=== PATIENT | male | born 1945 | race Caucasian/White ===

== ENCOUNTER 2016-06-30 06:09 | Day surgery (SDC) | payer MEDICARE, BC ==
[~2016-06-30] VITALS: Ht 190.5 cm; Wt 94.6 kg
[2016-06-30] VITALS (22 sets, daily range): BP systolic 93–136; BP diastolic 48–93; PULSE 48–62; RESP 12–18; TEMP 98.2–98.9; O2SAT 97–100; Ht 190.5 cm; Wt 94.6 kg
[~2016-06-30 06:09] MED LIST: AMIT25TA9 PO; AMLO5TAB2 PO; CYCL30DR BOTH EYES; FINA1TAB PO; HYDR-3989 PO; HYDR12.54 PO; LOSA100T44 PO; METO75TA PO; OMEP20CA10 PO; OXCA300T18 PO; PRIM50TA23 PO; SPIR25TA4 PO
--- OUTSIDE RECORDS SUMMARY | 2016-06-30 06:14 | XMS REPORT | Continuity of Care Document ---
Author Author [facility] Organization [facility] Address Unknown Phone Unavailable Allergies Active Description Code Type Severity Reaction Onset Reported/Identified Relationship to Patient Clinical Status Yes NKDA N/A N/A Yes No Known Allergies NKMA N/A N/A 07/31/2013 Yes No Known Allergies NKMA N/A N/A 07/31/2013 Yes No Known Medication Allergies NKMA N/A N/A 05/13/2016 Medications Medication Packaging Start Date Stop Date Route Dosage Sig finasteride(Propecia 1 mg oral tablet) 1 tabs 07/31/2013 Oral 1 mg 1 tabs, Oral, Daily losartan(Cozaar 100 mg oral tablet) 1 tabs 07/31/20132013 Oral 100 mg 1 tabs, Oral, Daily metoprolol(Lopressor 50 mg oral tablet) 0.5 tabs 07/31/2013 Oral 25 mg 0.5 tabs, Oral, BID amLODIPine(Norvasc 10 mg oral tablet) 1 tabs 07/31/20132013 Oral 10 mg 1 tabs, Oral, Daily multivitamin(multivitamin) 07/31/2013 09/03/2013 Oral Oral, Daily primidone(primidone) 07/31/2013 Oral 50 mg 50 mg, Oral, BID hydrochlorothiazide(hydrochlorothiazide 12.5 mg oral tablet ) 1 tabs 07/31/2013 03/15/2014 Oral 12.5 mg 1 tabs, Oral, Daily aspirin(aspirin) 07/31/2013 07/29/2014 Oral 81 mg 81 mg, Oral , Daily HYDROcodone-acetaminophen([place] 5 mg-325 mg oral tablet) 1 tabs 08/08/2013 01/15/2014 Oral 1 tabs, Oral, q6hr, #60 MUST LAST 30 DAYS - N DILLONS, 60 tabs DULoxetine(Cymbalta 60 mg oral delayed release capsule) 1 caps 08/14/2013 10/16/2013 Oral 60 mg 1 caps, Oral, Daily, do not crush or chew, 30 caps losartan(Cozaar 100 mg oral tablet) 08/20/2013 11/23/2013 See Instructions, TAKE ONE TABLET BY MOUTH EVERY DAY, 30 tabs amoxicillin(amoxicillin 875 mg oral tablet) 1 tabs 09/03/2013 09/03/2013 Oral 875 mg 1 tabs, Oral, BID, 20 tabs amoxicillin(amoxicillin 875 mg oral tablet) 1 tabs 09/03/2013 09/19/2013 Oral 875 mg 1 tabs, Oral, BID, 20 tabs metoprolol(Lopressor 50 mg oral tablet) 10/01/20132013 See Instructions, TAKE ONE-HALF TABLET BY MOUTH TWICE A DAY, 60 tabs amLODIPine(Norvasc 10 mg oral tablet) 10/01/2013 11/28/2013 See Instructions, TAKE ONE TABLET BY MOUTH EVERY DAY, 30 tabs DULoxetine(Cymbalta 60 mg oral delayed release capsule) 10/16/2013 01/09/2014 See Instructions, TAKE ONE CAPSULE BY MOUTH ONCE A DAY, 30 caps losartan(Cozaar 100 mg oral tablet) 11/23/2013 01/21/2014 See Instructions, TAKE ONE TABLET BY MOUTH EVERY DAY, 30 tabs amLODIPine(Norvasc 10 mg oral tablet) 11/28/2013 01/15/2014 See Instructions, TAKE ONE TABLET BY MOUTH EVERY DAY, 30 tabs metoprolol(Lopressor 50 mg oral tablet) 12/10/20132013 See Instructions, TAKE ONE-HALF TABLET BY MOUTH TWICE A DAY, 60 tabs amLODIPine(amLODIPine 10 mg oral tablet) 12/31/20132014 See Instructions, TAKE ONE TABLET BY MOUTH EVERY DAY, 30 tabs DULoxetine(Cymbalta 60 mg oral delayed release capsule) 01/09/2014 03/12/2014 See Instructions, TAKE ONE CAPSULE BY MOUTH ONCE A DAY, 30 caps HYDROcodone-acetaminophen([place] 5 mg-325 mg oral tablet) 1 tabs 01/15/2014 06/25/2014 Oral 1 tabs, Oral, q6hr, #60 MUST LAST 30 DAYS - N [place], 60 tabs, 0 Refill(s) cyclobenzaprine(cyclobenzaprine 10 mg oral tablet) 1 tabs 01/15/2014 01/25/2014 Oral 10 mg 1 tabs, Oral, TID, 30 tabs, PRN: as needed for spasm losartan(Cozaar 100 mg oral tablet) 01/21/2014 02/20/2014 See Instructions, TAKE ONE TABLET BY MOUTH DAILY, 30 tabs metoprolol(Lopressor 50 mg oral tablet) 02/06/20142014 See Instructions, TAKE ONE-HALF TABLET BY MOUTH TWICE A DAY, 60 tabs losartan(Cozaar 100 mg oral tablet) 02/20/2014 05/21/2014 See Instructions, TAKE ONE TABLET BY MOUTH DAILY, 30 tabs DULoxetine(DULoxetine 60 mg oral delayed release capsule) 03/12/2014 06/25/2014 See Instructions, TAKE ONE CAPSULE BY MOUTH ONCE A DAY, 90 caps amLODIPine(amLODIPine 10 mg oral tablet) 04/29/20142014 See Instructions, TAKE ONE TABLET BY MOUTH DAILY, 30 tabs losartan(Cozaar 100 mg oral tablet) 05/21/2014 07/22/2014 See Instructions, TAKE ONE TABLET BY MOUTH DAILY, 30 tabs amitriptyline(amitriptyline 25 mg oral tablet) 1 tabs 06/25/2014 Oral 25 mg 1 tabs, Oral, Bedtime (once a day), 0 Refill(s) HYDROcodone-acetaminophen([place] 5 mg-325 mg oral tablet) 1 tabs 06/25/2014 12/19/2014 Oral 1 tabs, Oral, q6hr, #60 MUST LAST 30 DAYS - N [place], 60 tabs, 0 Refill(s) nystatin topical(nystatin 100,000 units/g topical cream) 1 luis 06/25/2014 09/16/2014 Topical 1 luis, Topical, BID, 30 g, 0 Refill(s) fluconazole(Diflucan 150 mg oral tablet) 1 tabs 06/25/201401/2015 Oral 150 mg 1 tabs, Oral, Once, 1 tabs, 0 Refill(s) metoprolol(Lopressor 50 mg oral tablet) 07/05/20142014 See Instructions, TAKE ONE-HALF TABLET BY MOUTH TWICE A DAY, 60 tabs, 2 Refill(s) losartan(Cozaar 100 mg oral tablet) 07/22/2014 01/17/2015 See Instructions, TAKE ONE TABLET BY MOUTH DAILY, 30 tabs, 5 Refill(s) cycloSPORINE ophthalmic(Restasis) 1 drops 07/29/2014 Eye-Both 1 drops, Eye-Both, q12hr, 0 Refill(s) amLODIPine(amLODIPine 10 mg oral tablet) 07/29/20142014 See Instructions, TAKE ONE TABLET BY MOUTH DAILY, 30 tabs, 1 Refill(s) clotrimazole-betamethasone topical(Lotrisone 1%-0.05% topical cream) 1 luis 09/16/2014 Topical 1 luis, Topical, BID, 15 g, 0 Refill(s) fluconazole(Diflucan 150 mg oral tablet) 1 tabs 07/29/201404/2014 Oral 150 mg 150 mg=1 tabs, Oral, Daily, for 7 days, 7 tabs, 0 Refill(s) amLODIPine(amLODIPine 10 mg oral tablet) 09/26/20142014 See Instructions, TAKE ONE TABLET BY MOUTH DAILY, 30 tabs, 2 Refill(s) influenza virus vaccine, inactivated(influenza virus vaccine) 0.5 mL 201411/26/2014 IntraMuscular 0.5 mL, IntraMuscular, Once pneumococcal 13-valent conjugate vaccine(pneumococcal 13- valent conjugate vaccine) 0.5 mL 11/26/2014 11/26/2014 IntraMuscular 0.5 mL , IntraMuscular, Once terbinafine(terbinafine 125 mg oral granule) Each 12/19/2014 03/30/2016 Oral mg mg=Each, Oral, Daily, 0 Refill(s) baclofen(baclofen 10 mg oral tablet) 1 tabs 12/19/20142016 Oral 10 mg 10 mg=1 tabs, Oral, TID, PRN: as needed for muscle spasm, 270 tabs , 0 Refill(s) HYDROcodone-acetaminophen([place] 5 mg-325 mg oral tablet) 1 tabs 12/19/2014 05/14/2016 Oral 1 tabs, Oral, q6hr, 60 tabs, 0 Refill(s) hydrochlorothiazide(hydroCHLOROthiazide 12.5 mg oral capsule) 1 caps 2016 Oral 12.5 mg 12.5 mg=1 caps, Oral, Daily, 0 Refill(s) omeprazole(omeprazole 20 mg oral delayed release capsule) 4 caps 03/30/2016 03/30/2016 Oral 80 mg 80 mg=4 caps, Oral, Daily, 0 Refill(s) spironolactone(spironolactone 25 mg oral tablet) 2 tabs 03/30/2016 Oral 50 mg 50 mg=2 tabs, Oral, Daily, 0 Refill(s) Sodium Chloride 0.9%(Sodium Chloride 0.9% 1,000 mL) 1,000 mL 03/30/2016 03/30/2016 IV 10 mL/hr, IV metroNIDAZOLE(metroNIDAZOLE) 100 mL 05/13/2016 05/13/2016 IV Piggyback 500 mg 500 nv=204 mL, 100 mL/hr, IV Piggyback, PREOP ceFAZolin(ceFAZolin) 20 mL 05/13/2016 05/13/2016 IV Push 2 g 2 g= 20 mL, IV Push, PREOP metoclopramide(Reglan) 2 mL 05/13/2016 05/15/2016 IV Push 10 mg 10 mg=2 mL, IV Push, q6hr nalOXone(Narcan) 1 mL 05/13/2016 05/15/2016 IV Push 0.4 mg 0.4 mg= 1 mL, IV Push, Daily, PRN: Opiate Reversal morphine(morphine EPIC ANESTHESIA ANALYST 150 mg) 150 mL 05/13/2016 05/13/2016 IV 150 mg EPIC ANESTHESIA ANALYST, IV, Stop: 07/12/16 13:06:00 CDT ondansetron(Zofran) 2 mL 05/13/2016 05/15/2016 IV Push 4 mg 4 mg= 2 mL, IV Push, q6hr, PRN: Nausea or Vomiting Sodium Chloride 0.45%(Sodium Chloride 0.45% 1,000 mL) 1,000 mL 05/13/2016 05/14/2016 IV 80 mL/hr, IV cycloSPORINE ophthalmic(Restasis) 1 drops 05/13/20162016 Eye-Both 1 drops, Eye-Both, BID HYDROmorphone(Dilaudid) 0.5 mL 05/13/2016 05/13/2016 IV Push 0.5 mg 0.5 mg=0.5 mL, IV Push, q5min, PRN: Pain ocular lubricant(ocular lubricant ophthalmic solution) 2 drops 05/13/2016 05/15/2016 Eye-Both 2 drops, Eye-Both, q4hr ocular lubricant(Lacri-Lube S.O.P. ophthalmic ointment) 1 luis 05/13/2016 05/15/2016 Eye-Both 3.5 g 3.5 g=1 luis, Eye-Both, [id number] erythromycin ophthalmic(erythromycin 0.5% ophthalmic ointment) 1 luis 201605/15/2016 Eye-Right 1 luis, Eye-Right, QID HYDROcodone-acetaminophen(HYDROcodone-acetaminophen 5 mg- 216 mg/10 mL oral liquid range dose) 20 mL 05/14/2016 05/15/2016 Oral 20 mL, Oral, q6hr, PRN: Pain Moderate (4-6) tamsulosin(Flomax) 1 caps 05/14/2016 05/14/2016 Oral 0.4 mg 0.4 mg=1 caps, Oral, Once Problems Date Dx Coded Attending Type Code Diagnosis Diagnosed By 03/19/2014 Refugio Wilson MD Final 458.9 HYPOTENSION, UNSPECIFIED 03/19/2014 Refugio Wilson MD Reason 780.2 SYNCOPE AND COLLAPSE 04/02/2016 Misasi,, Davon Final E26.9 Hyperaldosteronism, unspecified 04/02/2016 Misasi,, Davon Final G25.0 Essential tremor 04/02/2016 Misasi,, Davon Final I10 Essential (primary) hypertension 04/02/2016 Misasi,, Davon Final K21.9 Gastro-esophageal reflux disease without esophagitis 04/02/2016 Misasi,, Davon Reason K22.70 Andrea''s esophagus without dysplasia 04/02/2016 Misasi,, Davon Final K44.9 Diaphragmatic hernia without obstruction or gangrene 04/02/2016 Misasi,, Davon Final L82.0 Inflamed seborrheic keratosis 04/02/2016 Misasi,, Davon Final M47.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, cervical region 04/02/2016 Misasi,, Davon Final M48.06 Spinal stenosis, lumbar region 04/02/2016 Misasi,, Davon Final M51.26 Other intervertebral disc displacement, lumbar region 04/02/2016 Misasi,, Davon Final M51.36 Other intervertebral disc degeneration, lumbar region 04/02/2016 Misasi,, Davon Final N28.9 Disorder of kidney and ureter, unspecified 04/02/2016 Misasi,, Davon Final Z87.19 Personal history of other diseases of the digestive system 04/02/2016 Misasi,, Davon Final Z87.442 Personal history of urinary calculi 04/02/2016 Misasi,, Davon Final Z87.891 Personal history of nicotine dependence 04/02/2016 Misasi,, Davon Final Z98.890 Other specified postprocedural states 05/19/2016 Misasi,, Davon Final H57.11 Ocular pain, right eye 05/19/2016 Misasi,, Davon Final I10 Essential (primary) hypertension 05/19/2016 Misasi,, Davon Final J30.9 Allergic rhinitis, unspecified 05/19/2016 Misasi,, Davon Final K21.0 Gastro-esophageal reflux disease with esophagitis 05/19/2016 Misasi,Davon Admitting K22.70 Andrea''s esophagus without dysplasia 05/19/2016 Misasi,, Davon Final K44.9 Diaphragmatic hernia without obstruction or gangrene 05/19/2016 Misasi,, Davon Final M47.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, cervical region 05/19/2016 Misasi,, Davon Final M51.36 Other intervertebral disc degeneration, lumbar region 05/19/2016 Misasi,, Davon Final M54.5 Low back pain 05/19/2016 Misasi,, Davon Final R13.10 Dysphagia, unspecified 05/19/2016 Misasi,, Davon Final R33.9 Retention of urine, unspecified 05/19/2016 Misasi,, Davon Final Z85.828 Personal history of other malignant neoplasm of skin 05/19/2016 Misasi,, Davon Final Z87.891 Personal history of nicotine dependence 05/19/2016 Misasi,, Davon Final K22.70 Andrea''s esophagus without dysplasia Procedures Code Description [place] [address] Esophagogastroduodenoscopy, flexible, transoral; diagnostic, including viridiana 03/30/2016 [id number] Robotic Assisted Procedure of Trunk Region, Percutaneous Endoscopic Approac 05/13/2016 Results Test Result Range CBC With Platelet No Differential - 05/13/16 06:24 HCT 42.7 % 42.0-52.0 HGB 15.4 g/dL 14.0-18.0 MCH 31.3 pg 27.0-32.0 MCHC 36.1 g/dL 32.0-36.0 MCV 86.8 fL 82.0-99.0 MPV 9.7 fL 9.4-12.3 Platelet Count 243 K/uL 150-400 RBC 4.92 10*6/uL 4.60-6.20 RDW 13.1 % 11.5-14.5 WBC 5.3 K/uL 4.8-10.8 Encounters ACCT No. Visit Date/Time Discharge Status Pt. Type Provider Facility Loc./Unit Complaint [id number] 03/27/2013 15:05:00 03/27/2013 23 :59:59 CLS Outpatient
--- OUTSIDE RECORDS SUMMARY | 2016-06-30 06:14 | XMS REPORT | Referral Summary ---
Author Author [facility], [facility] Organization [facility] Address Unknown Phone Unavailable Care Team Providers Care Aviation Survival Technician Name Role Phone Williamjameel Derik Primary Care Physician [phone] Encounter VC Date(s): 11/26/14 - 11/26/14 [facility] [address] [place] [id number] Discharge Disposition: 01-Home or Self Care Attending Physician: Darrick Delvalle MD Admitting Physician: Darrick Delvalle MD Vital Signs No data available for this section Problem List Condition Effective Dates Status Health Status Informant Allergic Active rhinitis(Confirmed) Basal cell Resolved carcinoma(Confirmed) 1 Basal cell Resolved carcinoma(Confirmed) 2 Degenerative Active arthritis of cervical spine(Confirmed) Colon Resolved polyp(Confirmed)3 Colonoscopy(Confirme Resolved d) Cutaneous Active horn(Confirmed) DDD (degenerative Active disc disease), lumbar(Confirmed) Dysphagia(Confirmed) Active Essential Resolved tremor(Confirmed) Focal hyperhidrosis, Active secondary(Confirmed) Cervical spine Active fracture(Confirmed) Hemorrhoids(Confirme Resolved d)4 Hypertension(Confirm Resolved ed) Inflamed seborrheic Active keratosis (disorder)(Confirmed ) Lumbago(Confirmed) Active Lumbar herniated Active disc(Confirmed) Lumbar spinal Active stenosis(Confirmed) 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 Olga 8renal disease (chronic kindey disease) 41612 10and right renal calculus Allergies, Adverse Reactions, Alerts No Known Allergies Medications amitriptyline 25 mg oral tablet 1 tabs, Oral, Bedtime (once a day), 0 Refill(s) Start Date: 06/25/14 Status: Ordered amLODIPine 10 mg oral tablet See Instructions, TAKE ONE TABLET BY MOUTH DAILY, # 30 tabs, 2 Refill(s), eRx: [facility] #[id number], TAKE ONE TABLET BY MOUTH DAILY Start Date: 02/24/15 Status: Ordered baclofen 10 mg oral tablet 10 mg 1 tabs, Oral, TID, as needed for muscle spasm, # 270 tabs, 0 Refill(s) Start Date: 12/19/14 Status: Ordered Cozaar 100 mg oral tablet 100 mg 1 tabs, Oral, Daily, PT. WILL NEED AN APPT./LABS PRIOR TO NEXT FILL., # 30 tabs, 2 Refill(s), Pharmacy: [facility] #[id number], 1 tabs Oral Daily, Instr:PT. WILL NEED AN APPT./LABS PRIOR TO NEXT FILL. Start Date: 01/17/15 Status: Ordered Diflucan 150 mg oral tablet 150 mg 1 tabs, Oral, Daily, # 7 tabs, 0 Refill(s), Pharmacy: [facility] # [id number], 1 tabs Oral Daily,x7 days Start Date: 11/21/14 Stop Date: 11/28/14 Status: Ordered Lopressor 50 mg oral tablet See Instructions, TAKE ONE-HALF TABLET BY MOUTH TWICE A DAY, # 60 tabs, 5 Refill (s), eRx: [facility] #[id number], TAKE ONE-HALF TABLET BY MOUTH TWICE A DAY Start Date: 01/02/15 Status: Ordered Lotrisone 1%-0.05% topical cream 1 luis, Topical, BID, # 15 g, 1 Refill(s), Pharmacy: [facility] #[id number] Start Date: 11/21/14 Status: Ordered [place] 5 mg-325 mg oral tablet 1 tabs, Oral, q6hr, # 60 tabs, 0 Refill(s) Start Date: 12/19/14 Status: Ordered primidone 50 mg, Oral, BID, 0 Refill(s) Start Date: 07/31/13 Status: Ordered Propecia 1 mg oral tablet 1 tabs, Oral, Daily, 0 Refill(s) Start Date: 07/31/13 Status: Ordered Refresh 1 drops, Eye-Both, BID, 0 Refill(s) Start Date: 12/28/13 Status: Ordered Restasis 1 drops, Eye-Both, q12hr, 0 Refill(s) Start Date: 07/29/14 Status: Ordered terbinafine 125 mg oral granule mg Each, Oral, Daily, 0 Refill(s) Start Date: 12/19/14 Status: Ordered Results No data available for this section Immunizations Vaccine Date Refusal Reason tetanus/diphth/pertuss (Tdap) adult/adol 12/03/08 hepatitis B pediatric vaccine 01/20/10 hepatitis B pediatric vaccine 11/18/09 hepatitis B pediatric vaccine 09/12/09 influenza virus vaccine, inactivated 11/26/14 influenza virus vaccine, inactivated 12/03/13 influenza virus vaccine, live 11/28/12 influenza virus vaccine, live 12/03/11 pneumococcal 13-valent conjugate vaccine 11/26/14 pneumococcal 23-polyvalent vaccine 11/28/12 tetanus-diphth toxoids (Td) adult/adol 06/05/03 tetanus-diphth toxoids (Td) adult/adol 02/24/96 zoster vaccine live 11/27/10 Procedures Procedure Date Related Diagnosis Body Site L5-S1 translaminar 01/12/11 bilateral L5-S1 transforaminal 12/24/10 Removal of R double J stent 10/08/09 cysto, insertion of R double J stent, R renal 10/01/09 litho cystoscopy, and right stent removal 09/25/08 cystoscopy, lithotripsy, & insertion of R 09/18/08 double J stent cystoscopy and right mid ureteral lithotripsy 09/04/08 attempted retrograde pushing of stone Colonoscopy1 2005 FS - Flexible sigmoidoscopy2 2006 Parotid3 1982 Excision of basal cell carcinoma of nose hemorroidectomy4 Radial keratotomy 1As a result of the flexible sigmoidoscopy and polypectomy 2Found a polyp 3Right parotidectomy followed by excision of a neuroma about 5 or 10 years later 4hemorroidectomy Social History Social History Type Response Smoking Status Former smoker; Stopped at age: 31 Assessment and Plan No data available for this section
--- OUTSIDE RECORDS SUMMARY | 2016-06-30 06:14 | XMS REPORT | Referral Summary ---
Author Author [facility], Family Medicine Organization [facility] Address Unknown Phone Unavailable Care Team Providers Care Cylinder Sander Operator Name Role Phone Esvin Delvalle Primary Care Physician [phone] Encounter [facility] [id number] Date(s): 06/25/14 - 06/25/14 [facility], [address] [place] [address]- Discharge Diagnosis: Neck stiffness Discharge Diagnosis: Swollen lymph nodes Discharge Diagnosis: Yeast dermatitis Discharge Disposition: 01-Home or Self Care Attending Physician: Nedra Luna APRN Admitting Physician: Nedra Luna APRN Vital Signs Most recent to 1 oldest [Reference Range]: Blood Pressure 124/82 mmHg [90-140/60-90 mmHg] (06/25/14 9:34 AM) Problem List Condition Effective Dates Status Health [...] screening 2006 stapled hemorrhoidectomy together with colonscopy 05514 & 2011 6benign 1970's 7Dr. Olga 8renal disease (chronic kindey disease) 95532 10and right renal calculus Allergies, Adverse Reactions, Alerts No Known Allergies Medications amitriptyline 25 mg oral tablet 1 tabs, Oral, Bedtime (once a day), 0 Refill(s) Start Date: 06/25/14 Status: Ordered amLODIPine 10 mg oral tablet See Instructions, TAKE ONE TABLET BY MOUTH DAILY, # 30 tabs, 1 Refill(s), eRx: [facility] #[id number], TAKE ONE TABLET BY MOUTH DAILY Start Date: 12/23/14 Status: Ordered baclofen 10 mg oral tablet 10 mg 1 tabs, Oral, TID, as needed for muscle spasm, # 270 tabs, 0 Refill(s) Start Date: 12/19/14 Status: Ordered Cozaar 100 mg oral tablet See Instructions, TAKE ONE TABLET BY MOUTH DAILY, # 30 tabs, 5 Refill(s), eRx: [facility] #[id number], TAKE ONE TABLET BY MOUTH DAILY Start Date: 07/22/14 Status: Ordered Diflucan 150 mg oral tablet 150 mg 1 tabs, Oral, Daily, # 7 tabs, 0 Refill(s), Pharmacy: [facility] # [id number], 1 tabs Oral Daily,x7 days Start Date: 11/21/14 Stop Date: 11/28/14 Status: Ordered Lopressor 50 mg oral tablet See Instructions, TAKE ONE-HALF TABLET BY MOUTH TWICE A DAY, # 60 tabs, 5 Refill (s), eRx: [facility] #[id number], TAKE ONE-HALF TABLET BY MOUTH TWICE A DAY Start Date: 01/02/15 Status: Ordered Lotrisone 1%-0.05% topical cream 1 luis, Topical, BID, # 15 g, 1 Refill(s), Pharmacy: [facility] #[id number] Start Date: 11/21/14 Status: Ordered Republic 5 mg-325 mg oral tablet 1 tabs, [...] stone Colonoscopy1 2005 FS - Flexible sigmoidoscopy2 2005 Parotid3 1982 Excision of basal cell carcinoma of nose hemorroidectomy4 Radial keratotomy 1As a result of the flexible sigmoidoscopy and polypectomy 2Found a polyp 3Right parotidectomy followed by excision of a neuroma about 5 or 10 years later 4hemorroidectomy Social History Social History Type Response Smoking Status Former smoker; Stopped at age: 31 Assessment and Plan Extracted from: Title: Ambulatory Patient Education Author: Nedra Luna APRN Date: Family Medicine Edwige Infection, Adult A edwige infection (also called yeast, fungus and Monilia infection) is an overgrowth of yeast that can occur anywhere on the body. A yeast infection commonly occurs in warm, moist body areas. Usually, the infection remains localized but can spread to become a systemic infection. A yeast infection may be a sign of a more severe disease such as diabetes, leukemia, or AIDS. A yeast infection can occur in both men and women. In women, Edwige vaginitis is a vaginal infection. It is one of the most common causes of vaginitis. Men usually do not have symptoms or know they have an infection until other problems develop. Men may find out they have a yeast infection because their sex partner has a yeast infection. Uncircumcised men are more likely to get a yeast infection than circumcised men. This is because the uncircumcised glans is not exposed to air and does not remain as dry as that of a circumcised glans. Older adults may develop yeast infections around dentures. CAUSES Women Antibiotics. Steroid medication taken for a long time. Being overweight (obese ). Diabetes. Poor immune condition. Certain serious medical conditions. Immune suppressive medications for organ transplant patients. Chemotherapy. . Menstration. Stress and fatigue. Intravenous drug use. Oral contraceptives. Wearing tight-fitting clothes in the crotch area. Catching it from a sex partner who has a yeast infection. Spermicide. Intravenous, urinary, or other catheters. Men Catching it from a sex partner who has a yeast infection. Having oral or anal sex with a person who has the infection. Spermicide. Diabetes. Antibiotics. Poor immune system. Medications that suppress the immune system. Intravenous drug use. Intravenous, urinary, or other catheters. SYMPTOMS Women Thick, white vaginal discharge. Vaginal itching. Redness and swelling in and around the vagina. Irritation of the lips of the vagina and perineum. Blisters on the vaginal lips and perineum. Painful sexual intercourse. Low blood sugar (hypoglycemia ). Painful urination. Bladder infections. Intestinal problems such as constipation, indigestion, bad breath, bloating , increase in gas, diarrhea, or loose stools. Men Men may develop intestinal problems such as constipation, indigestion, bad breath, bloating, increase in gas, diarrhea, or loose stools. Dry, cracked skin on the penis with itching or discomfort. Jock itch. Dry, flaky skin. Athlete's foot. Hypoglycemia. DIAGNOSIS Women A history and an exam are performed. The discharge may be examined under a microscope. A culture may be taken of the discharge. Men A history and an exam are performed. Any discharge from the penis or areas of cracked skin will be looked at under the microscope and cultured. Stool samples may be cultured. TREATMENT Women Vaginal antifungal suppositories and creams. Medicated creams to decrease irritation and itching on the outside of the vagina. Warm compresses to the perineal area to decrease swelling and discomfort. Oral antifungal medications. Medicated vaginal suppositories or cream for repeated or recurrent infections. Wash and dry the irritation areas before applying the cream. Eating yogurt with lactobacillus may help with prevention and treatment. Sometimes painting the vagina with gentian delmis solution may help if creams and suppositories do not work. Men Antifungal creams and oral antifungal medications. Sometimes treatment must continue for 30 days after the symptoms go away to prevent recurrence. HOME CARE INSTRUCTIONS Women Use cotton underwear and avoid tight-fitting clothing. Avoid colored, scented toilet paper and deodorant tampons or pads. Do not douche. Keep your diabetes under control. Finish all the prescribed medications. Keep your skin clean and dry. Consume milk or yogurt with lactobacillus active culture regularly. If you get frequent yeast infections and think that is what the infection is, there are fkmh-fva-[id number] medications that you can get. If the infection does not show healing in 3 days, talk to your caregiver. Tell your sex partner you have a yeast infection. Your partner may need treatment also, especially if your infection does not clear up or recurs. Men Keep your skin clean and dry. Keep your diabetes under control. Finish all prescribed medications. Tell your sex partner that you have a yeast infection so they can be treated if necessary. SEEK MEDICAL CARE IF: Your symptoms do not clear up or worsen in one week after treatment. You have an oral temperature above 102 F (38.9 C). You have trouble swallowing or eating for a prolonged time. You develop blisters on and around your vagina. You develop vaginal bleeding and it is not your menstrual period. You develop abdominal pain. You develop intestinal problems as mentioned above. You get weak or lightheaded. You have painful or increased urination. You have pain during sexual intercourse. MAKE SURE YOU: Understand these instructions. Will watch your condition. Will get help right away if you are not doing well or get worse. Document Released: 03/10/2005 Document Revised: 04/24/2012 Document Reviewed: [facility] Patient Information 2014 [employer]. Cutaneous Candidiasis Cutaneous candidiasis is a condition in which there is an overgrowth of yeast ( edwige ) on the skin. Yeast normally live on the skin, but in small enough numbers not to cause any symptoms. In certain cases, increased growth of the yeast may cause an actual yeast infection. This kind of infection usually occurs in areas of the skin that are constantly warm and moist, such as the armpits or the groin. Yeast is the most common cause of diaper rash in babies and in people who cannot control their bowel movements (incontinence ). CAUSES The fungus that most often causes cutaneous candidiasis is Edwige albicans . Conditions that can increase the risk of getting a yeast infection of the skin include: Obesity. . Diabetes. Taking antibiotic medicine. Taking control pills. Taking steroid medicines. Thyroid disease. An iron or zinc deficiency. Problems with the immune system. SYMPTOMS Red, swollen area of the skin. Bumps on the skin. Itchiness. DIAGNOSIS The diagnosis of cutaneous candidiasis is usually based on its appearance. Light scrapings of the skin may also be taken and viewed under a microscope to identify the presence of yeast. TREATMENT Antifungal creams may be applied to the infected skin. In severe cases, oral medicines may be needed. HOME CARE INSTRUCTIONS Keep your skin clean and dry. Maintain a healthy weight. If you have diabetes, keep your blood sugar under control. SEEK IMMEDIATE MEDICAL CARE IF: Your rash continues to spread despite treatment. You have a fever, chills, or abdominal pain. Document Released: 10/19/2011 Document Revised: 04/24/2012 Document Reviewed: [employer] Patient Information 2014 [employer]. No follow up information was provided. Extracted from: Title: Office Visit Note Author: Nedra Luna APRN Date: 06/25/14 Assessment/Plan 1.Neck stiffness CT to be scheduled by pt.. Will call with results when available. Ordered: CT Head w/ + w/o Neck w/ Contrast Office Visit Level 4 Est 38619 2.Swollen lymph nodes Awaiting CT results. Ordered: CT Head w/ + w/o Neck w/ Contrast Office Visit Level 4 Est 31370 3.Yeast dermatitis Rx to be taken as prescribed. Use ointment BID until rash resolved. May need Dermatology refferal. R TC/IC/ER if symptoms not improving or worsen. Ordered: Office Visit Level 4 Est 35652 Orders: HYDROcodone-acetaminophen, 1 tabs, Oral, q6hr, #60 MUST LAST 30 DAYS - N DILLONS, # 60 tabs, 0 Refill(s) nystatin topical, 1 luis, Topical, BID, # 30 g, 0 Refill(s), Pharmacy: [facility] #[id number]
--- OUTSIDE RECORDS SUMMARY | 2016-06-30 06:14 | XMS REPORT | Referral Summary ---
Author Author [facility], [facility] Organization [facility] Address Unknown Phone Unavailable Care Team Providers Care Surveyor Chain Helper Name Role Phone Esvin Delvalle Primary Care Physician [phone] Encounter [facility] Date(s): 11/26/14 - 11/26/14 [facility], [address] [place] [id number] Discharge Disposition: 01-Home or Self Care Attending [...] screening 2006 stapled hemorrhoidectomy together with colonscopy 37273 & 2010 6benign 1970's 7DrEliazar Espinoza 8renal disease (chronic kindey disease) 76149 10and right renal calculus Allergies, Adverse Reactions, Alerts No Known Allergies Medications amitriptyline 25 mg oral tablet 1 tabs, Oral, Bedtime (once a day), 0 Refill(s) Start Date: 06/25/14 Status: Ordered amLODIPine 10 mg oral tablet See Instructions, TAKE ONE TABLET BY MOUTH DAILY, # 30 tabs, 2 Refill(s), eRx: [facility] #[id number], TAKE ONE TABLET BY MOUTH DAILY Start Date: 09/26/14 Status: Ordered Cozaar 100 mg oral tablet See Instructions, TAKE ONE TABLET BY MOUTH DAILY, # 30 tabs, 5 Refill(s), eRx: [facility] #[id number], TAKE ONE TABLET BY MOUTH DAILY Start Date: 07/22/14 Status: Ordered Diflucan 150 mg oral tablet 150 mg 1 tabs, Oral, Daily, # 7 tabs, 0 Refill(s), Pharmacy: [facility] # [id number], 1 tabs Oral Daily,x7 days Start Date: 11/21/14 Stop Date: 11/28/14 Status: Ordered Lopressor 50 mg oral tablet See Instructions, TAKE ONE-HALF TABLET BY MOUTH TWICE A DAY, # 60 tabs, 2 Refill (s), eRx: [facility] #[id number], TAKE ONE-HALF TABLET BY MOUTH TWICE A DAY Start Date: 07/05/14 Status: Ordered Lotrisone 1%-0.05% topical cream 1 luis, Topical, BID, # 15 g, 1 Refill(s), Pharmacy: [facility] #[id number] Start Date: 11/21/14 Status: Ordered Rowlett 5 mg-325 mg oral tablet 1 tabs, Oral, q6hr, #60 MUST LAST 30 DAYS - N DILLONS, # 60 tabs, 0 Refill(s) Start Date: 06/25/14 Status: Ordered primidone 50 mg, Oral, BID, 0 Refill(s) Start Date: 07/31/13 Status: Ordered Propecia 1 mg oral tablet 1 tabs, Oral, Daily, 0 Refill(s) Start Date: 07/31/13 Status: Ordered Refresh 1 drops, Eye-Both, BID, 0 Refill(s) Start Date: 12/28/13 Status: Ordered Restasis 1 drops, Eye-Both, q12hr, 0 Refill(s) Start Date: 07/29/14 Status: Ordered Results No data available for [...]
--- OUTSIDE RECORDS SUMMARY | 2016-06-30 06:14 | XMS REPORT | Referral Summary ---
Author Author [facility] Organization [facility] Address Unknown Phone Unavailable Care Team Providers Care File Clerk Name Role Phone Esvin Delvalle Primary Care Physician [phone] Encounter Date(s): 12/19/14 - 12/19/14 [facility], [address] [place] [id number] Discharge Diagnosis: Rib pain on left side Discharge Disposition: 01-Home or Self Care Attending Physician: Rosamaria Rudolph PA-C Admitting Physician: Rosamaria Rudolph PA-C Vital Signs Most recent to 1 oldest [Reference Range]: Blood Pressure 134/90 mmHg [90-140/60-90 mmHg] (12/19/14 10:32 AM) Problem List Condition Effective Dates Status [...] screening 2006 stapled hemorrhoidectomy together with colonscopy 44871 & 2011 6benign 1970's 7Dr. Olga 8renal disease (chronic kindey disease) 97939 10and right renal calculus Allergies, Adverse Reactions, Alerts No Known Allergies Medications amitriptyline 25 mg oral tablet 1 tabs, Oral, Bedtime (once a day), 0 Refill(s) Start Date: 06/25/14 Status: Ordered amLODIPine 10 mg oral tablet See Instructions, TAKE ONE TABLET BY MOUTH DAILY, # 30 tabs, 2 Refill(s), eRx: [facility] #[id number], TAKE ONE TABLET BY MOUTH DAILY Start Date: 09/26/14 Status: Ordered baclofen 10 mg oral tablet 10 mg 1 tabs, Oral, TID, as needed for muscle spasm, # 270 tabs, 0 Refill(s) Start Date: 12/19/14 Status: Ordered Cozaar 100 mg oral tablet See Instructions, TAKE ONE TABLET BY MOUTH DAILY, # 30 tabs, 5 Refill(s), eRx: [facility] #[id number], TAKE ONE TABLET BY MOUTH DAILY Start Date: 07/22/14 Status: Ordered Diflucan 150 mg oral tablet 150 mg 1 tabs, Oral, Daily, # 7 tabs, 0 Refill(s), Pharmacy: [facility] # [id number], 1 tabs Oral Daily,x7 days Start Date: 11/21/14 Stop Date: 11/28/14 Status: Ordered Lopressor 50 mg oral tablet See Instructions, TAKE ONE-HALF TABLET BY MOUTH TWICE A DAY, # 60 tabs, 2 Refill (s), eRx: [facility] #[id number], TAKE ONE-HALF TABLET BY MOUTH TWICE A DAY Start Date: 07/05/14 Status: Ordered Lotrisone 1%-0.05% topical cream 1 luis, Topical, BID, # 15 g, 1 Refill(s), Pharmacy: [facility] #[id number] Start Date: 11/21/14 Status: Ordered [place] 5 mg-325 mg oral tablet 1 tabs, [...] Extracted from: Title: Ambulatory Patient Education Author: Rosamaria Rudolph PA-C Date : 12/19/14 Cardiovascular Chest Wall Pain Chest wall pain is pain in or around the bones and muscles of your chest. It may take up to 6 weeks to get better. It may take longer if you must stay physically active in your work and activities. CAUSES Chest wall pain may happen on its own. However, it may be caused by: A viral illness like the flu. Injury. Coughing. Exercise. Arthritis. Fibromyalgia. Shingles. HOME CARE INSTRUCTIONS Avoid overtiring physical activity. Try not to strain or perform activities that cause pain. This includes any activities using your chest or your abdominal and side muscles, especially if heavy weights are used. Put ice on the sore area. Put ice in a plastic bag. Place a towel between your skin and the bag. Leave the ice on for 15-20 minutes per hour while awake for the first 2 days. Only take [id number] or prescription medicines for pain, discomfort, or fever as directed by your caregiver. SEEK IMMEDIATE MEDICAL CARE IF: Your pain increases, or you are very uncomfortable. You have a fever. Your chest pain becomes worse. You have new, unexplained symptoms. You have nausea or vomiting. You feel sweaty or lightheaded. You have a cough with phlegm (sputum), or you cough up blood. MAKE SURE YOU: Understand these instructions. Will watch your condition. Will get help right away if you are not doing well or get worse. Document Released: 01/31/2006 Document Revised: 04/24/2012 Document Reviewed: [employer] Patient Information 2015 [employer]. This information is not intended to replace advice given to you by your health care provider. Make sure you discuss any questions you have with your health care provider. No follow up information was provided. Extracted from: Title: Office Visit Note Author: Rosamaria Rudolph PA-C Date: 12/19/14 Assessment/Plan Rib pain on left side I advised x-ray today, but pt does not want to have any more tests with radiation, as he states that he recently has had quite a few x- rays with his recent C4 fracture. He would like to defer x-ray today. Will refill his [place] to help with pain. D/w him to rest area and avoid stretching. Ice. [place] for pain. Splint area with arm if coughing, sneezing, etc. He is to make sure to take deep breaths during the day to avoid pneumonia. He will RTC in 2 weeks if no better, or sooner if any SOA, CP, or worsening pain. Pt voices understanding and agrees with this plan. Ordered: Office Visit Level 3 Est [id number] Orders: HYDROcodone-acetaminophen, 1 tabs, Oral, q6hr, # 60 tabs, 0 Refill(s)
--- OUTSIDE RECORDS SUMMARY | 2016-06-30 06:14 | XMS REPORT | Referral Summary ---
Author Organization Unknown Address Unknown Phone Unavailable Care Team Providers Care Route Inspector Name Role Phone Esvin Delvalle Primary Care Physician [phone] Encounter [facility] Date(s): 03/15/14 - 03/15/14 [facility] [address], [place] [address] Discharge Disposition: Home or Self Care Attending Physician: Refugio Wilson MD Admitting Physician: Refugio Wilson MD Vital Signs Most recent to 1 oldest [Reference Range]: Temperature Temporal 36.3 degC Artery [36.3-37.8 (03/15/14 9:21 AM) degC] Peripheral Pulse 62 bpm Rate [60-100 bpm] (03/15/14 9:21 AM) Heart Rate Monitored 54 bpm [60-100 bpm] *LOW* (03/15/14 11:50 AM) Respiratory Rate 16 br/min [14-20 br/min] (03/15/14 11:50 AM) Systolic Blood 113 mmHg Pressure [90-140 (03/15/14 11:50 AM) mmHg] Diastolic Blood 71 mmHg Pressure [60-90 (03/15/14 11:50 AM) mmHg] Mean Arterial 76 mmHg Pressure, Cuff (03/15/14 11:42 AM) Most recent to 1 oldest [Reference Range]: SpO2 99 % (03/15/14 11:50 AM) Problem List Condition Effective Dates Status Health Status Informant Allergic Active rhinitis(Confirmed) Basal cell Resolved carcinoma(Confirmed) 1 Basal cell Resolved carcinoma(Confirmed) 2 Degenerative Active arthritis of cervical spine(Confirmed) Colon Resolved polyp(Confirmed)3 Colonoscopy(Confirme Resolved d) Cutaneous Active horn(Confirmed) DDD (degenerative Active disc disease), lumbar(Confirmed) Dysphagia(Confirmed) Active Essential Resolved tremor(Confirmed) Focal hyperhidrosis, Active secondary(Confirmed) Hemorrhoids(Confirme Resolved d)4 Hypertension(Confirm Resolved ed) Inflamed seborrheic Active keratosis (disorder)(Confirmed ) Lumbago(Confirmed) Active Lumbar herniated Active disc(Confirmed) Lumbar spinal Active stenosis(Confirmed) 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 Olga 8renal disease (chronic kindey disease) 86299 10and right renal calculus Allergies, Adverse Reactions, Alerts No Known Allergies Medications Allergy 25 mg, Oral, Daily, 0 Refill(s) Start Date: 07/31/13 Status: Ordered amLODIPine 10 mg oral tablet See Instructions, TAKE ONE TABLET BY MOUTH EVERY DAY, # 30 tabs, 3 Refill(s), Pharmacy: [facility] #[id number], TAKE ONE TABLET BY MOUTH EVERY DAY Special Instructions: TAKE ONE TABLET BY MOUTH EVERY DAY Start Date: 12/31/13 Status: Ordered aspirin 81 mg, Oral, Daily, 0 Refill(s) Start Date: 07/31/13 Status: Ordered Cozaar 100 mg oral tablet See Instructions, TAKE ONE TABLET BY MOUTH DAILY, # 30 tabs, 2 Refill(s), eRx: [facility] #[id number], TAKE ONE TABLET BY MOUTH DAILY Special Instructions: TAKE ONE TABLET BY MOUTH DAILY Start Date: 02/20/14 Status: Ordered DULoxetine 60 mg oral delayed release capsule See Instructions, TAKE ONE CAPSULE BY MOUTH ONCE A DAY, # 90 caps, 1 Refill(s), Pharmacy: [facility] #[id number], TAKE ONE CAPSULE BY MOUTH ONCE A DAY Special Instructions: TAKE ONE CAPSULE BY MOUTH ONCE A DAY Start Date: 03/12/14 Status: Ordered Lopressor 50 mg oral tablet See Instructions, TAKE ONE-HALF TABLET BY MOUTH TWICE A DAY, # 60 tabs, eRx: [facility] #[id number], TAKE ONE-HALF TABLET BY MOUTH TWICE A DAY Special Instructions: TAKE ONE-HALF TABLET BY MOUTH TWICE A DAY Start Date: 02/06/14 Status: Ordered Wiley 5 mg-325 mg oral tablet 1 tabs, Oral, q6hr, #60 MUST LAST 30 DAYS - N DILLONS, # 60 tabs, 0 Refill(s) Special Instructions: #60 MUST LAST 30 DAYS - N DILLONS Start Date: 01/15/14 Status: Ordered primidone 50 mg, Oral, BID, 0 Refill(s) Start Date: 07/31/13 Status: Ordered Propecia 1 mg oral tablet 1 tabs, Oral, Daily, 0 Refill(s) Start Date: 07/31/13 Status: Ordered Refresh 1 drops, Eye-Both, BID, 0 Refill(s) Start Date: 12/28/13 Status: Ordered Results No data available for this section Immunizations Vaccine Date Refusal Reason tetanus/diphth/pertuss (Tdap) adult/adol 12/03/08 hepatitis B pediatric vaccine 01/20/10 hepatitis B pediatric vaccine 11/18/09 hepatitis B pediatric vaccine 09/12/09 influenza virus vaccine, inactivated 12/03/13 influenza virus vaccine, live 11/28/12 influenza virus vaccine, live 12/03/11 pneumococcal 13-valent conjugate vaccine 11/28/12 tetanus-diphth toxoids (Td) adult/adol 06/05/03 [...]
--- OUTSIDE RECORDS SUMMARY | 2016-06-30 06:14 | XMS REPORT | Referral Summary ---
Author Author [facility] Organization [facility] Address Unknown Phone Unavailable Care Team Providers Care Bank Courier Name Role Phone Nile Davila Primary Care Physician [phone] Encounter VC Date(s): 03/30/16 - 03/30/16 [facility] [address] [place] [address] Discharge Disposition: 01-Home or Self Care Attending Physician: Davon Boss MD Admitting Physician: Davon Boss MD Vital Signs Most recent to 1 oldest [Reference Range]: Temperature Temporal 36.4 degC Artery [36.3-37.8 (03/30/16 9:54 AM) degC] Heart Rate Monitored 55 bpm [60-100 bpm] *LOW* (03/30/16 2:30 PM) Respiratory Rate 7 br/min [14-20 br/min] *LOW* (03/30/16 2:30 PM) Blood Pressure 126/73 mmHg [90-140/60-90 mmHg] (03/30/16 2:30 PM) Mean Arterial 94 mmHg Pressure, Cuff (03/30/16 2:30 PM) SpO2 95 % (03/30/16 2:30 PM) Problem List Condition Effective Dates Status Health [...] 8 Seborrheic Active keratosis(Confirmed) Sigmoidoscopy(Confir Resolved med)9 Syncope(Confirmed) Active Thoracic or Active lumbosacral neuritis or radiculitis(Confirme d) Tinea Active corporis(Confirmed) hx of obstructive Active right mid ureteral calculus(Confirmed)1 0 1nose 2008 2chest 3hx of colon polyp found on flexible sigmoidoscopy 2005 4colon cancer screening 2005 stapled hemorrhoidectomy together with colonscopy 37207 & 2010 6benign 7Dr. Olga 8renal disease (chronic kindey disease) 93820 10and right renal calculus Allergies, Adverse Reactions, Alerts No Known Allergies Medications amitriptyline 25 mg oral tablet 1 tabs, Oral, Bedtime (once a day), 0 Refill(s) Start Date: 06/25/14 Status: Ordered Cozaar 100 mg oral tablet 100 mg 1 tabs, Oral, Daily, PT. WILL NEED AN APPT./LABS PRIOR TO NEXT FILL., # 30 tabs, 2 Refill(s), Pharmacy: [facility] #[id number], 1 tabs Oral Daily, Instr:PT. WILL NEED AN APPT./LABS PRIOR TO NEXT FILL. Start Date: 01/17/15 Status: Ordered hydroCHLOROthiazide 12.5 mg oral capsule 12.5 mg 1 caps, Oral, Daily, 0 Refill(s) Start Date: 03/30/16 Status: Ordered Lopressor 50 mg oral tablet See Instructions, TAKE ONE-HALF TABLET BY MOUTH TWICE A DAY, # 60 tabs, 5 Refill (s), eRx: [facility] #[id number], TAKE ONE-HALF TABLET BY MOUTH TWICE A DAY Start Date: 01/02/15 Status: Ordered Ceres 5 mg-325 mg oral tablet 1 tabs, Oral, q6hr, # 60 tabs, 0 Refill(s) Start Date: 12/19/14 Status: Ordered primidone 50 mg, Oral, BID, 0 Refill(s) Start Date: 07/31/13 Status: Ordered Propecia 1 mg oral tablet 1 tabs, Oral, Daily, 0 Refill(s) Start Date: 07/31/13 Status: Ordered Restasis 1 drops, Eye-Both, q12hr, 0 Refill(s) Start Date: 07/29/14 Status: Ordered spironolactone 25 mg oral tablet 50 mg 2 tabs, Oral, Daily, 0 Refill(s) Start Date: 03/30/16 Status: Ordered Results No data available for this section Immunizations Given and Recorded Vaccine Date Status Refusal Reason tetanus/diphth/pertuss (Tdap) adult/adol 12/03/08 Recorded hepatitis B pediatric vaccine 01/20/10 Given hepatitis B pediatric vaccine 11/18/09 Given hepatitis B pediatric vaccine 09/12/09 Given influenza virus vaccine, inactivated 11/26/14 Given influenza virus vaccine, inactivated 12/03/13 Recorded influenza virus vaccine, live 11/28/12 Given influenza virus vaccine, live 12/03/11 Given pneumococcal 13-valent conjugate vaccine 11/26/14 Given pneumococcal 13-valent conjugate vaccine1 11/28/12 Given pneumococcal 23-polyvalent vaccine 11/28/12 Given tetanus-diphth toxoids (Td) adult/adol 06/05/03 Given tetanus-diphth toxoids (Td) adult/adol 02/24/96 Given zoster vaccine live 11/27/10 Given 1Result Comment: [11/19/2014 Uncharted] Uploaded in Error - CC Procedures Procedure Date Related Diagnosis Body Site Esophagogastroduodenoscopy Capsule1 03/30/16 Motility Esophageal (Right, Nose)2 03/30/16 Procedure with Anesthesia3 03/30/16 L5-S1 translaminar 01/12/11 bilateral L5-S1 transforaminal 12/24/10 Removal of R double J stent 10/08/09 cysto, insertion of R double J stent, R renal 10/01/09 litho cystoscopy, and right stent removal 09/25/08 cystoscopy, lithotripsy, & insertion of R 09/18/08 double J stent cystoscopy and right mid ureteral lithotripsy 09/04/08 attempted retrograde pushing of stone Colonoscopy4 2005 FS - Flexible sigmoidoscopy5 2005 Parotid6 1981 Esophagogastroduodenoscopy Excision of basal cell carcinoma of nose hemorroidectomy7 Radial keratotomy 1auto-populated from documented surgical case 2auto-populated from documented surgical case 3auto-populated from documented surgical case 4As a result of the flexible sigmoidoscopy and polypectomy 5Found a polyp 6Right parotidectomy followed by excision of a neuroma about 5 or 10 years later 7hemorroidectomy Social History Social History Type Response Smoking Status Former smoker; Stopped at age: 31 Assessment and Plan No data available for this section
--- OUTSIDE RECORDS SUMMARY | 2016-06-30 06:14 | XMS REPORT | Continuity of Care Document ---
Author Author Raphael IYER, [facility] [address] [facility] [place] [address] Phone Care Team Providers Care Litigation Coordinator Name Role Phone Darrick Delvalle PP Unavailable Payers Payer name Insurance type Covered constitution party ID Authorization(s) Unknown Problems Condition Effective Dates (start - stop) Clinical Status External thrombosed hemorrhoids - Healing Hypertension, Benign - *Controlled Cerumen impaction - *Acute Back pain - *Chronic Swelling of skeletal muscle - *Acute Backache - *Chronic Change in bowel habits - *Symptomatic Abnormal involuntary movements - *Acute Spasm of muscle - *Chronic Low back pain - *Chronic Personal history of other malignant neoplasm of skin - *Resolved Inflamed seborrheic keratosis - *Symptomatic Dermatophytosis of nail - *Chronic Cutaneous horn - *Symptomatic Mole of skin - *Acute Right leg pain - *Acute Keloid scar of skin - *Acute Edema - *Acute Skin lesion of chest wall - *Worse Anal or rectal pain - *Chronic External hemorrhoids with other complication - *Chronic PRSNL HST URNR DSRD CALC - HYPERTENSION NOS - SEC FOCAL HYPERHIDROSIS - LUMBAR DISC DISPLACEMENT - LUMB/LUMBOSAC DISC DEGEN - SPIN STEN,LUMBR WO JHON - LUMBAGO - LUMBOSACRAL NEURITIS NOS - DYSPHAGIA NOS - BASAL CELL CA SKIN NOS - *Resolved Hemorrhoids - *Chronic Hypertension, Unspecified - *Stable Other and unspecified hyperlipidemia - *Chronic Encounter for therapeutic drug monitoring - *Routine Basal cell carcinoma - *Chronic Family History Family Member Diagnosis Age At Onset Status Mother (Unknown) Cancer - skin Yes Mother (Alive) Colon polyps and skin cancer, Yes Sister (Unknown) Cancer - melanoma Yes Father (Unknown) Heart disease Yes Social History Social History Element Description Quantity Unknown Allergies, Adverse Reactions, Alerts Substance Reaction Severity Status Unknown Medications Medication Instructions Dosage Effective Dates (start - stop) Status Fish Oil 1,000 mg capsule take 2 daily - Active otc allergy med - Active Propecia 1 mg tablet take 1 tablet (1MG) by oral route every day 1 MG - Active Multiple Vitamins tablet take 1 by Oral route every for 1 day 0 2011 - Active hydrochlorothiazide 12.5 mg capsule take 1 capsule (12.5MG) by oral route every day 12.5 MG - Active Restasis 0.05 % eye drops in a dropperette instill 1 drop by ophthalmic route every 12 hours into affected eye(s) 0 - Active primidone 50 mg tablet take 0.5 Tablet (25MG) by oral route 2 times every day 25 MG - Active Lopressor 50 mg tablet 1/2 bid - Active hydrocodone 5 mg-acetaminophen 325 mg tablet take 1 tablet by oral route every 6 hours as needed for pain 0 - Active Cozaar 100 mg tablet Take 1 tablet by mouth every day. - Active Norvasc 10 mg tablet Take 1 tablet by mouth every day. - Active Immunizations Vaccine Date Status Comments Flu (split) (3 yrs or older) completed Flu (split) (3 yrs or older) completed Pneumo (2 yrs or older)(PPV) completed Tdap (Boostrix ) completed - Completed reason: source unspecified Td (adult) completed - Completed reason: source unspecified Td (adult) completed - Completed reason: source unspecified Zoster completed - Completed reason: source unspecified hep B (ped/adol, 3 dose) completed - Completed reason: source unspecified hep B (ped/adol, 3 dose) completed - Completed reason: source unspecified hep B (ped/adol, 3 dose) completed - Completed reason: source unspecified Results Test Name Date and Time Measure Units Reference Range Abnormal Flag Comments Unknown Vital Signs Date / Time: Height Weight Pulse Rate Blood Pressure Temperature /15:09:00 75.50 in 218.00 lbs Procedures Procedure Date Unknown Encounters Encounter Location Date Patient Visit [facility] Surg Patient Visit [facility] Patient Visit [facility] Patient Visit [facility] Patient Visit [facility] Patient Visit [facility] Patient Visit [facility] Patient Visit [facility] Patient Visit [facility] Patient Visit [facility] Patient Visit [facility] E21 Derm Patient Visit [facility] Patient Visit [facility] Patient Visit [facility] Surg Patient Visit [facility] Patient Visit [facility] Patient Visit [facility] Patient Visit [facility] Patient Visit [facility] Patient Visit [facility] Patient Visit [facility] Patient Visit [facility] Advance Directives Directive Effective Date Unknown
--- OUTSIDE RECORDS SUMMARY | 2016-06-30 06:15 | XMS REPORT | Referral Summary ---
Author Author [facility] Organization [facility] Address Unknown Phone Unavailable Care Team Providers Care Logging Assistant Name Role Phone Derik Moise Primary Care Physician [phone] Encounter VC Date(s): 06/09/15 - 06/09/15 [facility] [address] [place] [address] [facility] Discharge Disposition: 01-Home or Self Care Attending Physician: Enrique Fox MD Admitting Physician: Enrique Fox MD Vital Signs No data available for [...] screening 2006 stapled hemorrhoidectomy together with colonscopy 88030 & 2011 6benign 1970's 7Dr. Olga 8renal disease (chronic kindey disease) 94533 10and right renal calculus Allergies, Adverse Reactions, Alerts No Known Allergies Medications amitriptyline 25 mg oral tablet 1 tabs, Oral, Bedtime (once a day), 0 Refill(s) Start Date: 06/25/14 Status: Ordered amLODIPine 10 mg oral tablet See Instructions, TAKE ONE TABLET BY MOUTH DAILY, # 30 tabs, 2 Refill(s), eRx: [facility] #[id number], TAKE ONE TABLET BY MOUTH DAILY Start Date: 02/24/15 Status: Ordered baclofen 10 mg oral tablet 10 mg 1 tabs, Oral, TID, as needed for muscle spasm, # 270 tabs, 0 Refill(s) Start Date: 12/19/14 Status: Ordered Cozaar 100 mg oral tablet 100 mg 1 tabs, Oral, Daily, PT. WILL NEED AN APPT./LABS PRIOR TO NEXT FILL., # 30 tabs, 2 Refill(s), Pharmacy: [facility] #[id number], 1 tabs Oral Daily, Instr:PT. WILL NEED AN APPT./LABS PRIOR TO NEXT FILL. Start Date: 01/17/15 Status: Ordered Diflucan 150 mg oral tablet 150 mg 1 tabs, Oral, Daily, # 7 tabs, 0 Refill(s), Pharmacy: [facility] # [id number], 1 tabs Oral Daily,x7 days Start Date: 11/21/14 Stop Date: 11/28/14 Status: Ordered Lopressor 50 mg oral tablet See Instructions, TAKE ONE-HALF TABLET BY MOUTH TWICE A DAY, # 60 tabs, 5 Refill (s), eRx: [facility] #[id number], TAKE ONE-HALF TABLET BY MOUTH TWICE A DAY Start Date: 01/02/15 Status: Ordered Lotrisone 1%-0.05% topical cream 1 luis, Topical, BID, # 15 g, 1 Refill(s), Pharmacy: [facility] #[id number] Start Date: 11/21/14 Status: Ordered [place] 5 mg-325 mg oral tablet 1 tabs, [...]
--- OUTSIDE RECORDS SUMMARY | 2016-06-30 06:15 | XMS REPORT | Continuity of Care Document ---
Author Author [facility] Organization [facility] Address Unknown Phone Unavailable Support Name Relationship Address Phone BERNIE BRISCOE MD Caregiver [address] [place], [place] [phone] JOVANI MERCADO MD Caregiver [address] [place] [phone] SONU DIALLO Next Of Kin [address] [place] [address] Insurance Providers Payer Name Policy Number Subscriber Name Relationship Premises Med(Medicare/Caid/Tr Adilia Ascencio 19 Self Medicare [id number] Adilia Ascencio Self [facility] [id number] Adilia Ascencio Self Advance Directives Directive Response Recorded Date/Time Advanced Directives Type None 12/21/13 4:58pm Problems Medical Problems Problem Onset Date Status Minor head injury Unknown Active Syncope and collapse Unknown Active Scalp laceration Unknown Active Minor head injury Unknown Active Medications Medication Dose Route Sig Days/Qty Instructions Order Date Discontinued Date Status Doxycycline Monohydrate Mg PO DAILY 09/04/08 09/07/08 Discontinued Metoprolol Tartrate 25 Mg PO TWICE A DAY TOLD TO TAKE AM OF SURGERY 05/1109/07/08 Discontinued Fish Oil/Rhododendron-3 Fatty Acids 1,000 Mg PO DAILY 10/07/09 Active Finasteride 1 Mg PO DAILY 10/08/09 Active Loratadine 10 Mg PO DAILY 09/25/08 09/30/09 Discontinued Multivitamins 1 Tab PO DAILY 10/08/09 Active Hydrocodone Bit/Acetaminophen 1 Tab PO FOUR TIMES DAILY 09/25/0830/11 Discontinued Phenazopyridine Hcl 200 Mg PO THREE TIMES A DAY 09/25/08 09/30/09 Discontinued Tamsulosin Hcl 0.4 Mg PO BEDTIME 09/25/08 09/30/09 Discontinued Doxycycline Monohydrate 1 Cap PO TWICE A DAY 09/25/08 09/30/09 Discontinued Metoprolol Tartrate 1 Tab PO TWICE A DAY 09/25/08 09/30/09 Discontinued Ciprofloxacin Hcl 500 Mg PO TWICE A DAY 09/25/08 09/30/09 Discontinued Ciprofloxacin 500 Mg PO TWICE A DAY 10 Days 09/07/08 09/17/08 Discontinued Phenazopyridine Hcl 200 Mg PO AFTER MEALS 7 Days 09/07/08 09/17/08 Discontinued Tamsulosin Hcl 0.4 Mg PO BEDTIME 28 Days 09/07/08 09/17/08 Discontinued Hydrocodone Bit/Acetaminophen 1 Tab PO Q6H/0300,0900,1500,2100 PRN 09/17/08 Discontinued Metoprol/Hydrochlorothiazide 1 Tab PO TWICE A DAY 09/07/08 09/17/08 Discontinued Doxycycline Monohydrate 50 Mg PO TWICE A DAY 09/18/08 09/25/08 Discontinued Finasteride 1 Mg PO DAILY 09/07/08 09/17/08 Discontinued Ibuprofen 200 Mg PO 10/07/09 Active P-Ephed Sul/Loratadine 1 Tab.sr PO 09/07/08 09/17/08 Discontinued Acetaminophen 500 Mg PO 09/25/08 10/08/09 Discontinued Amlodipine/Valsartan 1 Tab PO DAILY 10/08/09 Active Metoprolol Tartrate 50 Mg PO TWICE A DAY 10/08/09 Active [Equate Allery] DAILY 10/08/09 Active Cyclosporine 32 Ea OP TWICE A DAY 10/08/09 Active Hydrochlorothiazide Unknown Dose PO GIVE WITH BREAKFAST 12/21/13 Active Primidone Unknown Dose PO TWICE A DAY 12/21/13 Active Social History Social History Problem Response Recorded Date/Time Smoking Status Never smoker 12/21/2013 6:45pm Hx Substance Use No 12/21/2013 6:45pm Hx Alcohol Use No 12/21/2013 6:45pm Hospital Discharge Instructions No hospital discharge instructions. Plan of Care No plan of care. Functional Status Query Response Date Recorded Physical Hygiene Self December 21, 2013 6:45pm Disabilities None December 21, 2013 6:45pm Devices Used None December 21, 2013 6:45pm Dressing Self December 21, 2013 6:45pm Ambulation Self December 21, 2013 6:45pm Diet Self December 21, 2013 6:45pm Mental Status Alert Oriented December 21, 2013 6:45pm Disabilities None December 21, 2013 6:45pm Devices Used None December 21, 2013 6:45pm Physical Hygiene Self December 21, 2013 6:45pm Dressing Self December 21, 2013 6:45pm Ambulation Self December 21, 2013 6:45pm Diet Self December 21, 2013 6:45pm Allergies, Adverse Reactions, Alerts Allergen Type Severity Reaction Status Last Updated No Known Drug Allergies Allergy Mild Active 08/30/08 Immunizations Name Given Type Hx Influenza Vaccination No Historical Hx Pneumococcal Vaccination No Historical Hx Influenza Vaccination No Historical Vital Signs Acute Vital Signs Vital Response Date/Time Temperature (Fahrenheit) 95.8 deg F (96.8 - 99.1) Temperature (Calculated Celsius) 35.64004 degrees C (36.0 - 37.3) Pulse Rate (adult) 56 bpm (60 - 100) Respiratory Rate 18 breaths/min (10 - 20) O2 Sat by Pulse Oximetry 97 % (90 - 100) Blood Pressure 129/59 mm Hg Height 6 ft 3 in Weight 226 lb Body Mass Index 28.0 kg/m^2 Results Test Source Date Result Interp. Ref. Range Comments Alanine Aminotransferase (ALT/SGPT) December 21, 2013 4:41pm 45 U/L N 21 -72 Albumin December 21, 2013 4:41pm 4.1 G/DL N 3.5-5.0 Albumin/Globulin Ratio December 21, 2013 4:41pm 1.5 RATIO N 1.1-2.2 Alkaline Phosphatase December 21, 2013 4:41pm 75 U/L N 38-126 Anion Gap December 21, 2013 4:41pm 8 MEQ/L N 5-15 Aspartate Amino Transf (AST/SGOT) December 21, 2013 4:41pm 30 U/L N 17- 59 BUN/Creatinine Ratio December 21, 2013 4:41pm 12 RATIO N 6-26 Basophils # (Auto) December 21, 2013 4:41pm 0.1 T/MM3 N 0-0.2 Basophils (%) (Auto) December 21, 2013 4:41pm 0.7 % N 0-2 Blood Urea Nitrogen December 21, 2013 4:41pm 17.0 MG/DL N 9-20 Calcium Level December 21, 2013 4:41pm 9.0 MG/DL N 8.4-10.2 Calculated Osmolality December 21, 2013 4:41pm 269 MOSM/KG N 261-280 Carbon Dioxide Level December 21, 2013 4:41pm 31 MEQ/L H 22-30 Chloride Level December 21, 2013 4:41pm 98 MEQ/L N 98-107 Creatinine December 21, 2013 4:41pm 1.4 MG/DL N 0.8-1.5 Eosinophils # (Auto) December 21, 2013 4:41pm 0.2 T/MM3 N 0-0.5 Eosinophils (%) (Auto) December 21, 2013 4:41pm 1.8 % N 0-4 Globulin December 21, 2013 4:41pm 2.7 G/DL N 2.4-3.6 Glucose Level December 21, 2013 4:41pm 149 MG/DL H 75-110 Hematocrit December 21, 2013 4:41pm 43.0 % N 41-53 Hemoglobin December 21, 2013 4:41pm 15.4 GM/DL N 13.5-17.5 Lymphocytes # (Auto) December 21, 2013 4:41pm 2.3 T/MM3 N 1-4.8 Lymphocytes (%) (Auto) December 21, 2013 4:41pm 25.5 % N 23-45 Mean Corpuscular Hemoglobin December 21, 2013 4:41pm 31.4 UUG N 26-34 Mean Corpuscular Hemoglobin Concent December 21, 2013 4:41pm 35.8 GM/DL N 31-37 Mean Corpuscular Volume December 21, 2013 4:41pm 87.6 UM3 N 80-100 Mean Platelet Volume December 21, 2013 4:41pm 10.0 UM3 N 9.4-12.4 Monocytes # (Auto) December 21, 2013 4:41pm 0.8 T/MM3 N 0-0.8 Monocytes (%) (Auto) December 21, 2013 4:41pm 8.4 % N 0-9.0 Neutrophils # (Auto) December 21, 2013 4:41pm 5.7 T/MM3 N 1.8-7.7 Neutrophils (%) (Auto) December 21, 2013 4:41pm 63.4 % N 33-66 Platelet Count December 21, 2013 4:41pm 263 T/MM3 N 130-400 Potassium Level December 21, 2013 4:41pm 3.3 MEQ/L L 3.6-5 RDW Standard Deviation December 21, 2013 4:41pm 41.3 FL N 36.9-50.2 Red Blood Count December 21, 2013 4:41pm 4.91 M/MM3 N 4.50-5.90 Sodium Level December 21, 2013 4:41pm 137 MEQ/L N 134-144 Stone Analysis (T) September 25, 2008 12:00pm Send out - Has specimen been collected/obtained? Y Thyroid Stimulating Hormone (TSH) December 21, 2013 4:41pm 3.74 MIU/L N 0.47-4.68 Total Bilirubin December 21, 2013 4:41pm 0.60 MG/DL N 0.20-1.30 Total Protein December 21, 2013 4:41pm 6.8 G/DL N 6.3-8.2 Urine Bacteria September 07, 2008 9:36am 1+ - Has specimen been collected/ obtained? Y Urine Bilirubin September 07, 2008 9:36am Inconcl due to color - Has specimen been collected/obtained? Y Urine Blood September 07, 2008 9:36am 4+ H - Has specimen been collected/ obtained? Y Urine Collection Type September 07, 2008 9:36am Voided - Has specimen been collected/obtained? Y Urine Color September 07, 2008 9:36am [place] - Has specimen been collected /obtained? Y Urine Culture Indicated September 07, 2008 9:36am Cult set up - Has specimen been collected/obtained? Y Urine Glucose (UA) September 07, 2008 9:36am Negative - Has specimen been collected/obtained? Y Urine Ketones September 07, 2008 9:36am Negative - Has specimen been collected/obtained? Y Urine Leukocyte Esterase September 07, 2008 9:36am Negative - Has specimen been collected/obtained? Y Urine Nitrite September 07, 2008 9:36am Inconcl due to color - Has specimen been collected/obtained? Y Urine Protein September 07, 2008 9:36am Negative - Has specimen been collected/obtained? Y Urine RBC September 07, 2008 9:36am Tntc /HPF - Has specimen been collected/obtained? Y Urine Specific [place] September 07, 2008 9:36am 1.020 - Has specimen been collected/obtained? Y Urine Turbidity September 07, 2008 9:36am Slightly cloudy - Has specimen been collected/obtained? Y Urine Urobilinogen September 07, 2008 9:36am Inconcl due to color EU/DL - Has specimen been collected/obtained? Y Urine WBC September 07, 2008 9:36am 10-20 /HPF - Has specimen been collected/obtained? Y Urine pH September 07, 2008 9:36am 5.0 - Has specimen been collected/ obtained? Y White Blood Count December 21, 2013 4:41pm 9.0 T/MM3 N 4.5-11.0 Chemistry Specimen Hemolysis December 21, 2013 4:41pm < 15 0-25 0-25 : No Hemolysis.26-70: Slight Hemolysis - can falsely elevate K and Urine Protein. 71-285: Moderate Hemolysis - can falsely elevate K, Troponin I, CA 19-9, PTH, CSF GLucose, and Urine Protein, and can falsely decrease Phenytoin. 286-999: Gross Hemolysis - can falsely elevate K, Troponin I, CA 19-9, PTH, CSF Glucose, and Urine Protine, and can falsely decrease Phenytoin. Recommend specimen recollection. Lab Scanned Report September 19, 2013 3:34pm LAB TEST FORM REQUEST [id number] - Turbidity December 21, 2013 4:41pm < 20 0-20 Glomerular Filtration Rate Calc December 21, 2013 4:41pm 51 - Immature Granulocyte # (Auto) December 21, 2013 4:41pm 0.02 T/MM3 N 0.00 -0.03 Immature Granulocyte % (Auto) December 21, 2013 4:41pm 0.2 % N 0.0-0.5 Icterus Index December 21, 2013 4:41pm < 2 0-7 Urine Culture Urine, Clean Catch Voided September 07, 2008 10:06am Procedures No known history of procedures. Encounters Encounter Location Date/Time Departed Emergency Room [facility] 12/21/13 4:58pm Recent Diagnosis
--- OUTSIDE RECORDS SUMMARY | 2016-06-30 06:15 | XMS REPORT | Continuity of Care Document ---
Author Author [facility] Organization [facility] Address Unknown Phone Unavailable Support Name Relationship Address Phone SAMM ESPARZA MD Caregiver [address] [place] [address] [place] [address] Unavailable LEONA ROBERTS DO Caregiver [address] [place] [address] Unavailable SONUDIALLO Next Of Kin [address] [place] [address] Insurance Providers Guarantor Adilia Ascencio Address [address] [place] [address] Email DENIED/NO TO PT PORT Payer Medicare Policy Number [id number] Subscriber's Name Adilia Ascencio Relationship 18 Self Effective Date 11 Payer [facility] Policy Number [id number] Subscriber's Name Adilia Ascencio Relationship 18 Self Group Number [id number] Effective Date 85 Advance Directives Directive Response Recorded Date/Time Ordered Resuscitation Status Full Code, unverified 08/11/15 3:37pm Resuscitation Documents on File No 08/13/15 7:05am DPOA for Healthcare Only No 08/13/15 7:05am Problems Active Problems Medical Problem Onset Date Status Minor head injury Unknown Acute Minor head injury Unknown Acute Scalp laceration Unknown Acute Syncope and collapse Unknown Acute Medications Current Home Medications Medication Dose Units Route Directions Days Qty Instructions Start Date Amitriptyline Hcl 50 Mg Tablet 1 Tab Oral Bedtime 08/08/15 Amlodipine Besylate 10 Mg Tablet 1 Tab Oral Bedtime 30 08/08/15 Chlorthalidone 25 Mg Tablet 1 Tab Oral Give With Breakfast BEST TAKEN WITH FOOD. 08/08/15 Clonidine Hcl 0.1 Mg Tablet 1 Tab Oral Twice A Day 60 08/08/15 Cyclosporine (Restasis) 32 Ea Droperette 32 Ea Ophthalmic Twice A Day 10/08/09 Equate Allery Daily 10/08/09 Finasteride (Propecia) 1 Mg Tablet 1 Mg Oral Daily 10/08/09 Fish Oil/Post-3 Fatty Acids (Post 3 Fish Oil 1,000 Mg Cap) 1 Cap Capsule 1, 000 Mg Oral Daily 10/07/09 Gabapentin 300 Mg Capsule 1 Cap Oral Twice A Day 53 08/08/15 Hydrochlorothiazide 12.5 Mg Tablet 1 Tab Oral Daily 30 08/12/15 Hydrocodone/Acetaminophen (Hydrocodon-Acetaminophen 5-325) 5-325 Tablet 1 Tab Oral As Needed 08/08/15 Ibuprofen 200 Mg Capsule 200 Mg Oral 10/07/09 Losartan Potassium 100 Mg Tablet 1 Tab Oral Bedtime 30 08/08/15 Metoprolol Tartrate (Lopressor) 50 Mg Tablet 50 Mg Oral Twice A Day 10/08/09 Multivitamins (Multivitamin) 1 Tab Tablet 1 Tab Oral Daily Primidone (Mysoline) 50 Mg Tablet 50 Mg Oral Three Times A Day Take 1 tablet, by mouth, 2 times a day. 08/08/15 Ranitidine Hcl (Zantac) 300 Mg Tablet 300 Mg Oral Daily for Acid Reflux 08/08/15 Terbinafine Hcl 250 Mg Tablet 1 Tab Oral Daily 90 08/08/15 Past Home Medications Medication Directions Ordered Status Acetaminophen (Tylenol) 325 Mg Tablet, 500 Mg Oral 09/25/08 Discontinued Ciprofloxacin (Cipro) 500 Mg/5 Ml Eulalia.mc.rec, 500 Mg Oral Twice A Day Discontinued Ciprofloxacin Hcl (Cipro) 500 Mg Tablet, 500 Mg Oral Twice A Day 09/25/08 Discontinued Doxycycline Monohydrate 50 Mg Capsule, 1 Cap Oral Twice A Day 09/25/08 Discontinued Doxycycline Monohydrate (Doxycycline) 150 Mg Tablet, 50 Mg Oral Twice A Day 09/18/08 Discontinued Doxycycline Monohydrate (Doxycycline) 150 Mg Tablet, Mg Oral Daily 09/04/08 Discontinued Finasteride (Propecia) 1 Mg Tablet, 1 Mg Oral Daily 09/07/08 Discontinued Hydrocodone Bit/Acetaminophen (Lortab 10/500 Tablet) 1 Tab Tablet, 1 Tab Oral Four Times Daily 09/25/08 Discontinued Hydrocodone Bit/Acetaminophen (Hydrocodone-Apap 10-500 Tablet) 1 Tab Tablet, 1 Tab Oral Q6h/0300,0900,1500,2100 as needed 09/07/08 Discontinued Loratadine (Claritin) 10 Mg Tablet, 10 Mg Oral Daily 09/25/08 Discontinued Metoprol/Hydrochlorothiazide (Metoprolol-Hctz 50/25 Mg Tab) 1 Tab Tablet, 1 Tab Oral Twice A Day 09/07/08 Discontinued Metoprolol Tartrate 50 Mg Tablet, 1 Tab Oral Twice A Day 09/25/08 Discontinued Metoprolol Tartrate 25 Mg Tablet, 25 Mg Oral Twice A Day 09/04/08 Discontinued P-Ephed Sul/Loratadine (Claritin-D 24 Hour Tab Sa) 1 Tab.sr .24 H Tab.sr.24h, 1 Tab.sr Oral 09/07/08 Discontinued Phenazopyridine Hcl (Pyridium) 200 Mg Tablet, 200 Mg Oral Three Times A Day 09/25/08 Discontinued Phenazopyridine Hcl 200 Mg Tablet, 200 Mg Oral After Meals 09/07/08 Discontinued Primidone Unknown Strength Tablet, Unknown Dose Oral Twice A Day 12/21/13 Discontinued Tamsulosin Hcl (Flomax) 0.4 Mg Cap.sr.24h, 0.4 Mg Oral Bedtime 09/25/08 Discontinued Tamsulosin Hcl (Flomax) 0.4 Mg Cap.sr.24h, 0.4 Mg Oral Bedtime 09/07/08 Discontinued Social History Social History Problem Response Recorded Date/Time Onset Date Status Chewing Tobacco Status No 08/13/2015 7:05am Not Applicable Not Applicable Hx Substance Use No 08/13/2015 7:05am Not Applicable Not Applicable Hx Alcohol Use No 08/13/2015 7:05am Not Applicable Not Applicable Has the pt used tobacco in the last 12 months No 08/13/2015 7:05am Not Applicable Not Applicable Query Response Start Date Stop Date Smoking Status Former smoker Hospital Discharge Instructions No hospital discharge instructions. Plan of Care Discharge Date 08/13/15 9:36am Prescriptions See Medication Section Functional Status No functional status results. Allergies, Adverse Reactions, Alerts No known allergies. Immunizations Query Response on File Recorded Date/Time Hx Influenza Vaccination No 12/21/13 6:45pm Hx Pneumococcal Vaccination No 12/21/13 6:45pm Hx Influenza Vaccination No 12/21/13 6:45pm Vital Signs Acute Vital Signs Vital Response Date/Time Temperature (Fahrenheit) 97.8 deg F (96.8 - 99.1) 08/13/2015 6:43am Temperature (Calculated Celsius) 36.51176 degrees C (36.0 - 37.3) 08/13/2015 6:43am Temperature Source Oral 08/13/2015 6:43am Pulse Rate (adult) 52 bpm (60 - 100) 08/13/2015 9:30am Respiratory Rate 16 breaths/min (10 - 20) 08/13/2015 9:30am O2 Sat by Pulse Oximetry 94 % (90 - 100) 08/13/2015 9:30am Oxygen Delivery Method Room Air 08/13/2015 9:30am Blood Pressure 113/65 mm Hg 08/13/2015 9:30am Blood Pressure Source Automatic Cuff 08/13/2015 9:30am Height (Feet) 6 feet 08/13/2015 6:40am Height (Inches) 3.00 inches 08/13/2015 6:40am Weight (Kilograms) 98.600 kg 08/13/2015 6:40am Body Mass Index (BMI) 27.2 08/13/2015 6:40am Results No known relevant diagnostic tests, laboratory data and/or discharge summary. Procedures Procedure Status Date Provider(s) Esophagogastroduodenoscopy (EGD) with closed biopsy Completed 08/13/15 LEONA ROBERTS DO Encounters Encounter Location Arrival/Admit Date Discharge/Depart Date Attending Provider Departed [facility] 08/13/15 6:37am 08/13/15 9: 36am LEONA ROBERTS DO [facility] 08/06/15 10:27am MARIA M AGUAYO MD
--- OUTSIDE RECORDS SUMMARY | 2016-06-30 06:15 | XMS REPORT | Referral Summary ---
Author Author [facility] [place] Organization [facility] Address Unknown Phone Unavailable Care Team Providers Care Wire Inspector Name Role Phone Derik Moise Primary Care Physician [phone] Encounter VC Date(s): 06/09/15 - 06/09/15 [facility] [place] [address] [place] [address] [facility] Discharge Diagnosis: Allergic conjunctivitis Discharge Diagnosis: Allergic rhinitis Discharge Diagnosis: Flushing Discharge Disposition: -Home or Self Care Attending Physician: Enrique Fox MD Admitting Physician: Enrique Fox MD Vital Signs Most recent to 1 oldest [Reference Range]: Blood Pressure 114/68 mmHg [90-140/60-90 mmHg] (06/09/15 9:43 AM) Problem List Condition Effective Dates Status [...] screening 2005 stapled hemorrhoidectomy together with colonscopy 55132 & 2010 6benign 1970's 7Dr. Olga 8renal disease (chronic kindey disease) 908[address] 10and right renal calculus Allergies, Adverse Reactions, Alerts No Known Allergies Medications amitriptyline 25 mg oral tablet 1 tabs, Oral, Bedtime (once a day), 0 Refill(s) Start Date: 06/25/14 Status: Ordered amLODIPine 10 mg oral tablet See Instructions, TAKE ONE TABLET BY MOUTH DAILY, # 30 tabs, 2 Refill(s), eRx: [facility] #[id number], TAKE ONE TABLET BY MOUTH DAILY Start Date: 02/24/15 Status: Ordered baclofen 10 mg oral tablet 10 mg 1 tabs, Oral, TID, as needed for muscle spasm, # 270 tabs, 0 Refill(s) Start Date: 12/19/14 Status: Ordered Cozaar 100 mg oral tablet 100 mg 1 tabs, Oral, Daily, PT. WILL NEED AN APPT./LABS PRIOR TO NEXT FILL., # 30 tabs, 2 Refill(s), Pharmacy: [facility] #[id number], 1 tabs Oral Daily, Instr:PT. WILL NEED AN APPT./LABS PRIOR TO NEXT FILL. Start Date: 01/17/15 Status: Ordered Diflucan 150 mg oral tablet 150 mg 1 tabs, Oral, Daily, # 7 tabs, 0 Refill(s), Pharmacy: [facility] # [id number], 1 tabs Oral Daily,x7 days Start Date: 11/21/14 Stop Date: 11/28/14 Status: Ordered Lopressor 50 mg oral tablet See Instructions, TAKE ONE-HALF TABLET BY MOUTH TWICE A DAY, # 60 tabs, 5 Refill (s), eRx: [facility] #[id number], TAKE ONE-HALF TABLET BY MOUTH TWICE A DAY Start Date: 01/02/15 Status: Ordered Lotrisone 1%-0.05% topical cream 1 luis, Topical, BID, # 15 g, 1 Refill(s), Pharmacy: [facility] #[id number] Start Date: 11/21/14 Status: Ordered Buckley 5 mg-325 mg oral tablet 1 tabs, [...] Refill(s) Start Date: 12/19/14 Status: Ordered Results Chemistry Most recent to 1 oldest [Reference Range]: IgE (Immunoglobulin 252 Intl Units/mL E) [0-100 Intl *HI* Units/mL] (06/09/15 12:18 PM) Immunizations Vaccine Date Refusal Reason tetanus/diphth/pertuss (Tdap) [...]
--- OUTSIDE RECORDS SUMMARY | 2016-06-30 06:15 | XMS REPORT | Referral Summary ---
Author Organization Unknown Address Unknown Phone Unavailable Care Team Providers Care Director Video Name Role Phone Esvin Delvalle Primary Care Physician [phone] Encounter VC Date(s): 03/12/14 - 03/12/14 [facility] [place] [address] [place] [address] Dr [place] [address] Discharge Diagnosis: Degenerative arthritis of cervical spine Discharge Diagnosis: Pressure in head Discharge Disposition: Home or Self Care Attending Physician: Erin Lacey MD Admitting Physician: Erin Lacey MD Vital Signs Most recent to 1 oldest [Reference Range]: Temperature Oral 36.8 degC [35.8-37.3 degC] (03/12/14 8:22 AM) Peripheral Pulse 66 bpm Rate [60-100 bpm] (03/12/14 8:22 AM) Respiratory Rate 16 br/min [14-20 br/min] (03/12/14 8:22 AM) Blood Pressure 141/83 mmHg [90-140/60-90 mmHg] *HI* (03/12/14 8:22 AM) Problem List Condition Effective Dates Status [...] screening 2005 stapled hemorrhoidectomy together with colonscopy 96566 & 2010 6benign s 7Dr. Olga 8renal disease (chronic kindey disease) 28350 10and right renal calculus Allergies, Adverse Reactions, Alerts No Known Allergies Medications Allergy 25 mg, Oral, Daily, 0 Refill(s) Start Date: 07/31/13 Status: Ordered amLODIPine 10 mg oral tablet See Instructions, TAKE ONE TABLET BY MOUTH EVERY DAY, # 30 tabs, 3 Refill(s), Pharmacy: [facility] #[id number], TAKE ONE TABLET BY MOUTH EVERY DAY Special Instructions: TAKE ONE TABLET BY MOUTH EVERY DAY Start Date: 12/31/13 Status: Ordered aspirin 81 mg, Oral, Daily, 0 Refill(s) Start Date: 07/31/13 Status: Ordered Cozaar 100 mg oral tablet See Instructions, TAKE ONE TABLET BY MOUTH DAILY, # 30 tabs, 2 Refill(s), eRx: [facility] #[id number], TAKE ONE TABLET BY MOUTH DAILY Special Instructions: TAKE ONE TABLET BY MOUTH DAILY Start Date: 02/20/14 Status: Ordered DULoxetine 60 mg oral delayed release capsule See Instructions, TAKE ONE CAPSULE BY MOUTH ONCE A DAY, # 90 caps, 1 Refill(s), Pharmacy: [facility] #[id number], TAKE ONE CAPSULE BY MOUTH ONCE A DAY Special Instructions: TAKE ONE CAPSULE BY MOUTH ONCE A DAY Start Date: 03/12/14 Status: Ordered hydrochlorothiazide 12.5 mg oral tablet 1 tabs, Oral, Daily, 0 Refill(s) Start Date: 07/31/13 Status: Ordered Lopressor 50 mg oral tablet See Instructions, TAKE ONE-HALF TABLET BY MOUTH TWICE A DAY, # 60 tabs, eRx: [facility] #[id number], TAKE ONE-HALF TABLET BY MOUTH TWICE A DAY Special Instructions: TAKE ONE-HALF TABLET BY MOUTH TWICE A DAY Start Date: 02/06/14 Status: Ordered Cable 5 mg-325 mg oral tablet 1 tabs, [...] 2005 FS - Flexible sigmoidoscopy2 2005 Parotid3 1981 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
--- OUTSIDE RECORDS SUMMARY | 2016-06-30 06:16 | XMS REPORT | Referral Summary ---
Author Author [facility] [place] Organization [facility] [place], [facility] Address Unknown Phone Unavailable Care Team Providers Care Consultant In Ergonomics And Safety Name Role Phone Esvin Delvalle Primary Care Physician [phone] Encounter VC Date(s): 07/29/14 - 07/29/14 [facility] [place], [address] [place] [address]- Discharge Diagnosis: Rash Discharge Disposition: 01-Home or Self Care Attending Physician: Darrick Delvalle MD Admitting Physician: Darrick Delvalle MD Vital Signs Most recent to 1 oldest [Reference Range]: Blood Pressure 122/78 mmHg [90-140/60-90 mmHg] (07/29/14 10:18 AM) Problem List Condition Effective Dates Status [...] screening 2006 stapled hemorrhoidectomy together with colonscopy 29938 & 2010 6benign 1970's 7Dr. Olga 8renal disease (chronic kindey disease) 41469 10and right renal calculus Allergies, Adverse Reactions, Alerts No Known Allergies Medications amitriptyline 25 mg oral tablet 1 tabs, Oral, Bedtime (once a day), 0 Refill(s) Start Date: 06/25/14 Status: Ordered amLODIPine 10 mg oral tablet See Instructions, TAKE ONE TABLET BY MOUTH DAILY, # 30 tabs, 1 Refill(s), eRx: [facility] #[id number], TAKE ONE TABLET BY MOUTH DAILY Start Date: 12/23/14 Status: Ordered baclofen 10 mg oral tablet 10 mg 1 tabs, Oral, TID, as needed for muscle spasm, # 270 tabs, 0 Refill(s) Start Date: 12/19/14 Status: Ordered Cozaar 100 mg oral tablet 100 mg 1 tabs, Oral, Daily, PT. WILL NEED AN APPT./LABS PRIOR TO NEXT FILL., # 30 tabs, 2 Refill(s), Pharmacy: [facility] #[id number], 1 tabs Oral Daily, Instr:PT. WILL NEED AN APPT./LABS PRIOR TO NEXT FILL. Start Date: 01/17/15 Status: Ordered Diflucan 150 mg oral tablet 150 mg 1 tabs, Oral, Daily, # 7 tabs, 0 Refill(s), Pharmacy: [facility] # [id number], 1 tabs Oral Daily,x7 days Start Date: 11/21/14 Stop Date: 11/28/14 Status: Ordered Lopressor 50 mg oral tablet See Instructions, TAKE ONE-HALF TABLET BY MOUTH TWICE A DAY, # 60 tabs, 5 Refill (s), eRx: [facility] #[id number], TAKE ONE-HALF TABLET BY MOUTH TWICE A DAY Start Date: 01/02/15 Status: Ordered Lotrisone 1%-0.05% topical cream 1 luis, Topical, BID, # 15 g, 1 Refill(s), Pharmacy: [facility] #[id number] Start Date: 11/21/14 Status: Ordered Hartleton 5 mg-325 mg oral tablet 1 tabs, [...] Extracted from: Title: Ambulatory Patient Education Author: Darrick Delvalle MD Date: Allergy Rash A rash is a change in the color or texture of your skin. There are many different types of rashes. You may have other problems that accompany your rash. CAUSES Infections. Allergic reactions. This can include allergies to pets or foods. Certain medicines. Exposure to certain chemicals, soaps, or cosmetics. Heat. Exposure to poisonous plants. Tumors, both cancerous and noncancerous. SYMPTOMS Redness. Scaly skin. Itchy skin. Dry or cracked skin. Bumps. Blisters. Pain. DIAGNOSIS Your caregiver may do a physical exam to determine what type of rash you have. A skin sample (biopsy ) may be taken and examined under a microscope. TREATMENT Treatment depends on the type of rash you have. Your caregiver may prescribe certain medicines. For serious conditions, you may need to see a skin doctor ( rock wool insulator ). HOME CARE INSTRUCTIONS Avoid the substance that caused your rash. Do not scratch your rash. This can cause infection. You may take cool baths to help stop itching. Only take beym-cmu-jilerls or prescription medicines as directed by your caregiver. Keep all follow-up appointments as directed by your caregiver. SEEK IMMEDIATE MEDICAL CARE IF: You have increasing pain, swelling, or redness. You have a fever. You have new or severe symptoms. You have body aches, diarrhea, or vomiting. Your rash is not better after 3 days. MAKE SURE YOU: Understand these instructions. Will watch your condition. Will get help right away if you are not doing well or get worse. Document Released: 01/21/2003 Document Revised: 04/24/2012 Document Reviewed: [facility] Patient Information 2014 [facility]. [facility] Cutaneous Candidiasis Cutaneous candidiasis is a condition [...] Released: 10/19/2011 Document Revised: 04/24/2012 Document Reviewed: [facility] Patient Information 2014 [employer]. No follow up information was provided. Extracted from: Title: Office Visit Note Author: Darrick Delvalle MD Date: 07/29/14 Assessment/Plan Rash Ordered: Office Visit Level 3 Est 54057 Tinea corporis Rx for Diflucan 150mg daily for 7 days. Lotrisone cream bid sparingly to rash. Ordered: Office Visit Level 3 Est 37618 Orders: amLODIPine, See Instructions, TAKE ONE TABLET BY MOUTH DAILY, # 30 tabs, 1 Refill(s), eRx: [facility] #[id number], TAKE ONE TABLET BY MOUTH DAILY
[2016-06-30] MEDS ORDERED: MIDAZOLAM 5mg/5ml INJECTION ONE ×2 (07:00→07:35)
[2016-06-30] MEDS ORDERED: LIDOCAINE 1% (10mg/ml) 2ml SDV INJ ONE (07:00)
[2016-06-30] MEDS ORDERED: FENTANYL 100mcg/2ml INJECTION ONE (07:00)
[2016-06-30] MEDS ORDERED: LR 1,000 ML IV SCH (07:00)
[2016-06-30] MEDS ORDERED: FLUMAZENIL 0.5mg/5ml INJECTION IV ONE (07:01)
[2016-06-30] MEDS ORDERED: ATROPINE 0.4 MG/ML VIAL ONE (07:01)
[2016-06-30] MEDS ORDERED: GLUCAGON 1 MG INJECTION ONE (07:01)
[2016-06-30] MEDS ORDERED: DiphenhydrAMINE 50 MG/ML INJECTION ONE (07:01)
[2016-06-30] MEDS ORDERED: NALOXONE 0.4mg/ml INJECTION ONE (07:01)
[2016-06-30] MEDS ORDERED: SALINE FLUSH 10ml SYRINGE ONE ×2 (07:02→07:29)
[2016-06-30] MEDS ORDERED: GLUCAGON 1 MG INJECTION IV PRN (07:10)
[2016-06-30] MEDS ORDERED: FENTANYL 100mcg/2ml INJECTION IV PRN (07:10)
[2016-06-30] MEDS ORDERED: MIDAZOLAM 5mg/5ml INJECTION IV PRN (07:10)
--- NOTE | 2016-06-30 09:30 | NUR ---
Fluids Pt sees alcohol still operator et states his GFR is <60. Physician aware of pt receiving LR during procedure.
--- NOTE | 2016-06-30 13:04 | OPNOTEF ---
DATE OF OPERATION 06/30/2016 INDICATION Colorectal cancer screening and history of persistent flushing possibly consistent with carcinoid tumor. OPERATION Colonoscopy into the terminal ileum. SURGEON Gold Davila D.O. Consent signed and on the chart. Routine monitoring with ECG, continuous oximetry and noninvasive blood pressure was performed throughout the procedure and found to be within normal limits. IV sedation was performed with 7 mg of Versed and 70 mcg of Fentanyl. He was also given one amp of glucagon during the procedure. Prior to the procedure, the patient was brought to the endoscopy lab where a brief review of his medical history and physical exam was performed. The procedure was described to him and he was agreeable to continue. All questions were answered. DESCRIPTION OF OPERATION He was given IV sedation and placed in the left lateral decubitus position. A digital rectal exam was normal. He had a normal size and contour prostate, no masses. The colonoscope was introduced through the anal verge and advanced to the cecum and then into the terminal ileum. Terminal ileum appeared normal. The endoscope was brought back into the cecum, noting a polyp in close proximity to the appendiceal orifice. The polyp was biopsied, then fully removed with a snare and retrieved. There was another polyp that was removed at the proximal ascending colon, also one at the transverse colon and at 30 cm. He had diverticulosis in the descending and sigmoid colon. He tolerated the procedure well. There were no complications. IMPRESSION 1. Colonoscopy into the terminal ileum with polyps removed at the cecum, proximal ascending colon, transverse colon, and 30 cm. 2. Diverticulosis of the descending and sigmoid colon. RECOMMENDATIONS 1. Review the path report when available. 2. Consider a 24-hour urine for serotonin and catecholamines. MTDD
== END 2016-06-30 09:48 | disposition home or self-care (01) ==
LOC: SCU 06:09
PROVIDERS: ATTEND Internal Medicine
DX: Z12.11 Encounter for screening for malignant neoplasm of colon (principal); D12.0 Benign neoplasm of cecum; R23.2 Flushing; K57.30 Diverticulosis of large intestine without perforation or abscess without bleeding; Z87.891 Personal history of nicotine dependence; K44.9 Diaphragmatic hernia without obstruction or gangrene; Q40.2 Other specified congenital malformations of stomach; K21.9 Gastro-esophageal reflux disease without esophagitis; K22.70 Barrett's esophagus without dysplasia; I10 Essential (primary) hypertension; G25.0 Essential tremor; Z79.899 Other long term (current) drug therapy
CPT/HCPCS: 45380; 45385; J1610; J2250; J3010; J7120; 88305